=== PATIENT | female | born 1990 | race Caucasian/White ===

== ENCOUNTER 2020-09-06 03:09 | Emergency (ER) | payer OTHER ==
[2020-09-06] MEDS ORDERED: Lidocaine 1% PF 5 ML VIAL ONE (03:27)
== END 2020-09-06 03:35 | disposition home or self-care (01) ==
LOC: BURERS 03:09
DX: T16.2XXA Foreign body in left ear, initial encounter (principal); F17.290 Nicotine dependence, other tobacco product, uncomplicated
CPT/HCPCS: 99282